=== PATIENT | female | born 1990 | race Two or more races ===

== ENCOUNTER 2020-05-21 05:48 | Inpatient (IN) | payer OTHER ==
[~2020-05-21] VITALS: Ht 167.6 cm; Wt 93.4 kg
[2020-05-21] MEDS ORDERED: PRENATAL CAPLE1 EAC1 PO (14:39)
== END 2020-05-23 13:21 | disposition home or self-care (01) | DRG 807 ==
LOC: LDR 05:48 → OB/GYN 05:48
PROVIDERS: ADMIT Obstetrics & Gynecology; ATTEND Obstetrics & Gynecology
PROC: 10E0XZZ Delivery of Products of Conception, External Approach (ICD-10-PCS; principal; 2020-05-21)
PROC: 0KQM0ZZ Repair Perineum Muscle, Open Approach (ICD-10-PCS; 2020-05-21)
PROC: 4A1HXFZ Monitoring of Products of Conception, Cardiac Rhythm, External Approach (ICD-10-PCS; 2020-05-21)
DX: O70.1 Second degree perineal laceration during delivery (principal); Z37.0 Single live birth; O99.824 Streptococcus B carrier state complicating childbirth; Z3A.39 39 weeks gestation of pregnancy